=== PATIENT | male | born 1990 | race Caucasian/White ===

== ENCOUNTER 2023-06-30 11:12 | Emergency (ER) | payer OTHER ==
[~2023-06-30] VITALS: Ht 165.1 cm; Wt 84.8 kg
[2023-06-30 11:27] VITALS: BP 122/72; PULSE 105; RESP 18; TEMP 99.6; O2SAT 94
[2023-06-30 12:03] LABS: FLU A ANTIGEN negative (NEGATIVE); FLU B ANTIGEN negative (NEGATIVE)
[2023-06-30] MEDS ORDERED: NACL 0.9% 1,000 ML IV ONE (12:10)
[2023-06-30 12:40] LABS: HEMATOCRIT 40.4 % (36-52); HEMOGLOBIN 13.7 g/dL (12.0-18.0); MEAN CORPUSCULAR HEMOGLOBIN 28 pg (27-31); MEAN CORPUSCULAR HGB CONC 34 g/dL (33-37); MEAN CORPUSCULAR VOLUME 83.3 fL (80-94); PLATELET COUNT (AUTO) 205 K/uL (140-450); RED BLOOD CELL COUNT(AUTO) 4.85 MIL/uL (4.20-6.10); RED CELL DISTRIBUTION WIDTH 13.7 % (11.6-13.7)
[2023-06-30 12:59] LABS: ALBUMIN 2.6 g/dL (3.4-5.0); ANION GAP 10.7 (8-16); CARBON DIOXIDE 25.1 mmol/L (21-32); CREATININE 1.2 mg/dL (0.6-1.3); POTASSIUM 3.8 mmol/L (3.5-5.1); TOTAL BILIRUBIN 0.5 mg/dL (0.0-1.0); TOTAL PROTEIN, SERUM 6.9 g/dL (6.4-8.2)
[2023-06-30 13:06] LABS: BLASTS, MANUAL % 2 % (0-0); MYELOCYTES % 3 % (0-0)
[2023-06-30 13:07] LABS: MONOCYTES % (MANUAL) 13 % (5-12)
[2023-06-30 13:08] LABS: CALCIUM 7.5 mg/dL (8.5-10.1)
[2023-06-30] MEDS ORDERED: IBUP-2213 PO (13:13)
[2023-06-30] MEDS ORDERED: AMOX-999 PO (13:13)
[2023-06-30 13:14] LABS: LYMPHOCYTES % (MANUAL) 37 % (20-46); METAMYELOCYTES % 5 % (0-0)
[2023-06-30] MEDS ORDERED: AZIT250T4 PO (14:02)
[2023-06-30 14:06] VITALS: BP 118/74; PULSE 88; RESP 19; TEMP 98; O2SAT 98
== END 2023-06-30 14:07 | disposition home or self-care (01) ==
LOC: MED 11:12
DX: J18.9 Pneumonia, unspecified organism (principal); Z20.822 Contact with and (suspected) exposure to COVID-19
CPT/HCPCS: 36415; 71045; 80053; 81002; 85025; 87426; 87635; 87804; 96360; 99284; C9803; J7030; Q0092